=== PATIENT | female | born 1940 | race African-American/Black ===

== ENCOUNTER 2017-02-25 12:33 | Emergency (ER) | payer MEDICARE ==
[~2017-02-25] VITALS: Ht 160 cm; Wt 71.0 kg
[~2017-02-25 12:33] MED LIST: AGGR; AMLO5TAB4 PO; ASPI-1158 PO; BCOMPLEX PO; BENA20TA3 PO; FERR1TAB51 PO; GLIP5TAB12 PO; HYDR25TA PO; ISOS30TA PO; PENT400T2; SIMV40TA2 PO
[2017-02-25] MEDS ORDERED: VISCOUS LIDOCAINE 2% 15 ML UDC MM PRN (17:15)
[2017-02-25] MEDS ORDERED: MAGNESIUM/ALUMINUM HYDROXIDE/SIMETHICONE 30ML UDC PO ONE (17:15)
[2017-02-25 17:45] VITALS: BP 134/75
== END 2017-02-25 18:01 | disposition home or self-care (01) ==
LOC: ER 15:46
DX: R13.10 Dysphagia, unspecified (principal)
CPT/HCPCS: 70490; 71020; 99284

== ENCOUNTER 2018-09-07 20:04 | Inpatient (IN) | payer MEDICARE ==
[~2018-09-07] VITALS: Ht 312.4 cm; Wt 79.4 kg
[~2018-09-07 20:04] MED LIST changes: +BENA20TA10 PO; -BENA20TA3 PO; +PENT400T11 PO; -PENT400T2
[2018-09-07 22:01] LABS: BASOPHILS % 0.6 % (0.0-2.0); EOSINOPHILS % 0.1 % (0.0-5.0); HEMATOCRIT. 35.4 % (36.0-48.0); HEMOGLOBIN. 11.7 g/dL (12.0-16.0); LYMPHOCYTES % 18.9 % (20.0-50.0); MEAN CORPUSCULAR HEMOGLOBIN 29.6 pg (28.0-32.0); MEAN PLATELET VOLUME 8.5 fl (7.4-10.4); MONOCYTES % 3.8 % (2.0-8.0); NEUTROPHILS % 76.6 % (40.0-76.0); PLATELET 264 x1000/uL (130-400); RED BLOOD CELL COUNT 3.93 mill/uL (4.2-5.4); RED CELL DISTRIBUTION WIDTH 14.7 % (11.6-14.6)
[2018-09-07 22:05] LABS: CHLORIDE 104 mEq/L (98-107)
[2018-09-07 22:08] LABS: INR 1.1
[2018-09-08 08:10] VITALS: BP 154/96
[2018-09-08 09:14] VITALS: BP 154/96
[2018-09-08] MEDS: SODIUM CHLORIDE 0.9% 1,000 ML IV SCH (11:24)
[2018-09-08] MEDS ORDERED: IPRATROPIUM/ALBUTEROL 0.5-3(2.5)MG/3ML NEB INH PRN (11:30)
[2018-09-08] MEDS ORDERED: CLONIDINE 0.1MG TABLET PO PRN (11:30)
[2018-09-08] MEDS ORDERED: ONDANSETRON HCL 4MG/2ML INJ IV PRN (11:30)
[2018-09-08] MEDS ORDERED: ACETAMINOPHEN 325MG TABLET PO PRN (11:30)
[2018-09-08] MEDS ORDERED: MAGNESIUM/ALUMINUM HYDROXIDE/SIMETHICONE 30ML UDC PO PRN (11:30)
[2018-09-08] MEDS ORDERED: HYDROCODONE/ACETAMINOPHEN 5/325MG TABLET PO PRN (11:30)
[2018-09-08] MEDS ORDERED: GUAIFENESIN 200MG/10ML SUGAR FREE UDC PO PRN (11:30)
[2018-09-08] MEDS ORDERED: DOCUSATE SODIUM 100MG CAPSULE PO PRN (11:30)
[2018-09-08] MEDS ORDERED: DEXTROSE 50% WATER 50ML SYRINGE IV PRN (11:45)
[2018-09-08 12:04] VITALS: BP 130/70
[2018-09-08] MEDS: BLOOD SUGAR DIAGNOSTIC STRIP TEST SCH ×3 (12:20→20:38)
[2018-09-08] MEDS ORDERED: ATOR10TA69 MT (12:36)
[2018-09-08] MEDS ORDERED: LATA2.5D2 EACHEYE (12:38)
[2018-09-08 12:49] VITALS: BP 154/96
[2018-09-08] MEDS: INSULIN LISPRO 100 UNITS/ML SUBCUT SCH ×3 (12:50→20:38)
[2018-09-08 15:57] VITALS: BP 141/67
[2018-09-08] MEDS: BENAZEPRIL 10MG TABLET PO SCH (15:59)
[2018-09-08] MEDS: ISOSORBIDE MONONITRATE 60MG TABLET SR 24HR PO SCH (15:59)
[2018-09-08] MEDS: AMLODIPINE 10MG TABLET PO SCH (15:59)
[2018-09-08] MEDS: FERROUS SULFATE 325MG TABLET PO SCH (18:37)
[2018-09-08 20:00] VITALS: BP 126/64
[2018-09-08] MEDS: ATORVASTATIN CALCIUM 10MG TABLET PO SCH (21:24)
[2018-09-09] VITALS: BP 106/60
[2018-09-09] MEDS: SODIUM CHLORIDE 0.9% 1,000 ML IV SCH ×2 (02:30→13:11)
[2018-09-09 06:00] VITALS: BP 112/64
[2018-09-09] MEDS: BLOOD SUGAR DIAGNOSTIC STRIP TEST SCH ×4 (06:08→20:52)
[2018-09-09 06:36] LABS: BASOPHILS % 0.4 % (0.0-2.0); EOSINOPHILS % 0.5 % (0.0-5.0); HEMATOCRIT. 34.1 % (36.0-48.0); HEMOGLOBIN. 11.1 g/dL (12.0-16.0); LYMPHOCYTES % 29.9 % (20.0-50.0); MEAN CORPUSCULAR HEMOGLOBIN 29.2 pg (28.0-32.0); MEAN CORPUSCULAR VOLUME 89.6 fL (81.0-99.0); MEAN PLATELET VOLUME 8.9 fl (7.4-10.4); MONOCYTES % 7.3 % (2.0-8.0); NEUTROPHILS % 61.9 % (40.0-76.0); PLATELET 255 x1000/uL (130-400); RED CELL DISTRIBUTION WIDTH 14.9 % (11.6-14.6)
[2018-09-09 06:44] LABS: CHLORIDE 107 mEq/L (98-107)
[2018-09-09 06:50] LABS: LDL CHOLESTEROL 92 mg/dL (5-100)
[2018-09-09 06:52] LABS: HDL CHOLESTEROL 75 mg/dL (40-59)
[2018-09-09 06:53] LABS: T4 FREE 1.07 ng/dL (0.76-1.46)
[2018-09-09] MEDS: INSULIN LISPRO 100 UNITS/ML SUBCUT SCH ×4 (07:25→20:52)
[2018-09-09 08:00] VITALS: BP 109/53
[2018-09-09] MEDS: ISOSORBIDE MONONITRATE 60MG TABLET SR 24HR PO SCH (08:38)
[2018-09-09] MEDS: BENAZEPRIL 10MG TABLET PO SCH (08:38)
[2018-09-09] MEDS: AMLODIPINE 10MG TABLET PO SCH (08:39)
[2018-09-09] MEDS: FERROUS SULFATE 325MG TABLET PO SCH ×3 (09:06→18:05)
[2018-09-09] MEDS: OMEPRAZOLE 20MG CAPSULE EXTENDED RELEASE PO SCH (09:06)
[2018-09-09 12:00] VITALS: BP 108/54
[2018-09-09 15:57] LABS: TOTAL IRON BINDING CAPACITY 325 ug/dL (250-450)
[2018-09-09 16:00] VITALS: BP_SYST 123; BP_SYST 128; BP_SYST 133; BP_DIAS 62; BP_DIAS 69; BP_DIAS 84
[2018-09-09 16:12] LABS: FOLIC ACID (FOLATE) SERUM 15.4 ng/mL (>5.38)
[2018-09-09 20:00] VITALS: BP_SYST 120; BP_SYST 124; BP_SYST 129; BP_DIAS 58; BP_DIAS 62; BP_DIAS 63
[2018-09-09] MEDS: ASPIRIN/DIPYRIDAMOLE 25MG/200MG CAPSULE SA PO SCH (21:09)
[2018-09-09] MEDS: ATORVASTATIN CALCIUM 10MG TABLET PO SCH (21:09)
[2018-09-10 00:03] VITALS: BP 137/68
[2018-09-10] MEDS: SODIUM CHLORIDE 0.9% 1,000 ML IV SCH (03:35)
[2018-09-10 04:21] VITALS: BP 149/69
[2018-09-10] MEDS: BLOOD SUGAR DIAGNOSTIC STRIP TEST SCH ×2 (06:27→12:49)
[2018-09-10] MEDS: OMEPRAZOLE 20MG CAPSULE EXTENDED RELEASE PO SCH (06:27)
[2018-09-10] MEDS: INSULIN LISPRO 100 UNITS/ML SUBCUT SCH ×2 (07:23→12:49)
[2018-09-10 08:00] VITALS: BP_SYST 132; BP_SYST 149; BP_DIAS 63; BP_DIAS 73
[2018-09-10] MEDS: FERROUS SULFATE 325MG TABLET PO SCH ×2 (08:40→13:43)
[2018-09-10] MEDS: ASPIRIN/DIPYRIDAMOLE 25MG/200MG CAPSULE SA PO SCH (08:40)
[2018-09-10] MEDS: ISOSORBIDE MONONITRATE 60MG TABLET SR 24HR PO SCH (08:40)
[2018-09-10] MEDS: AMLODIPINE 10MG TABLET PO SCH (08:41)
[2018-09-10] MEDS: BENAZEPRIL 10MG TABLET PO SCH (08:41)
[2018-09-10 12:08] VITALS: BP 122/68
[2018-09-10 16:00] VITALS: BP 131/50
[2018-09-10 16:12] VITALS: BP 131/50
[2018-09-13 04:15] LABS: BARBITURATE SCREEN Negative ug/mL (Cutoff:0.1); BENZODIAZEPINE SCREEN Negative ng/mL (Cutoff:20); OPIATES SCREEN Negative ng/mL (Cutoff:5); PHENCYCLIDINE SCREEN Negative ng/mL (Cutoff:8)
== END 2018-09-10 16:46 | disposition home or self-care (01) | DRG 74 ==
LOC: ER 20:04 → 6WST 09-08 00:58 → EDBEDREQTM 09-08 01:24 → EDBEDREQ 09-08 01:24 → CANRESERV 09-08 07:36 → ENRESERV 09-08 07:36
PROVIDERS: ADMIT Internal Medicine; ATTEND Internal Medicine
DX: G90.8 Other disorders of autonomic nervous system (principal); I13.0 Hypertensive heart and chronic kidney disease with heart failure and stage 1 through stage 4 chronic kidney disease, or unspecified chronic kidney disease; I69.351 Hemiplegia and hemiparesis following cerebral infarction affecting right dominant side; H40.9 Unspecified glaucoma; R26.9 Unspecified abnormalities of gait and mobility; D64.9 Anemia, unspecified; N18.2 Chronic kidney disease, stage 2 (mild); E11.22 Type 2 diabetes mellitus with diabetic chronic kidney disease; E78.5 Hyperlipidemia, unspecified; I50.9 Heart failure, unspecified; Z88.1 Allergy status to other antibiotic agents; Z79.82 Long term (current) use of aspirin; Z79.84 Long term (current) use of oral hypoglycemic drugs
CPT/HCPCS: 36415; 70544; 70553; 71045; 80061; 80307; 82607; 82746; 82962; 83540; 83550; 83605; 83880; 84439; 84443; 84481; 84484; 93005; 93306; 93880; 93970; 96365; 97162; 97166; 99285; J7030

== ENCOUNTER 2019-08-23 13:01 | Emergency (ER) | payer MEDICARE, OTHER ==
[~2019-08-23] VITALS: Ht 160 cm; Wt 65.0 kg
[~2019-08-23 13:01] MED LIST changes: +ATOR10TA69 MT; -GLIP5TAB12 PO; -HYDR25TA PO; +LATA2.5D2 EACHEYE; -PENT400T11 PO; +PENT400T16 PO; -SIMV40TA2 PO
[2019-08-23] MEDS ORDERED: ACETAMINOPHEN 325MG TABLET PO ONE (21:00)
[2019-08-23 21:26] LABS: EOSINOPHILS % 0.6 % (0.0-5.0); HEMATOCRIT. 32.5 % (36.0-48.0); LYMPHOCYTES % 25.5 % (20.0-50.0); MEAN CORPUSCULAR VOLUME 88.4 fL (81.0-99.0); MEAN PLATELET VOLUME 8.6 fl (7.4-10.4); MONOCYTES % 7.8 % (2.0-8.0); NEUTROPHILS % 65.1 % (40.0-76.0); PLATELET 261 x1000/uL (130-400); RED BLOOD CELL COUNT 3.67 mill/uL (4.2-5.4); RED CELL DISTRIBUTION WIDTH 15.7 % (11.6-14.6)
[2019-08-23 21:28] LABS: CHLORIDE 109 mEq/L (98-107)
[2019-08-24 01:44] VITALS: BP 133/48
[2019-08-24 03:17] LABS: CLARITY URINE CLOUDY (CLEAR); COLOR URINE YELLOW (YELLOW); KETONES URINE NEGATIVE (NEGATIVE); LEUKOCYTE ESTERASE URINE 3+ (NEGATIVE); NITRITE URINE NEGATIVE (NEGATIVE); OCCULT BLOOD URINE NEGATIVE (NEGATIVE); PROTEIN URINE 2+ (NEGATIVE); SPECIFIC GRAVITY URINE 1.014 (1.005-1.030); UROBILINOGEN URINE 0.2 E.U./dL (0.2-1.0)
[2019-08-24 03:24] LABS: *AMPHETAMINES SCREEN URINE NEGATIVE (NEGATIVE); *BARBITURATES SCREEN URINE NEGATIVE (NEGATIVE)
[2019-08-24 03:25] LABS: *BENZODIAZEPINES SCREEN URINE NEGATIVE (NEGATIVE); *COCAINE SCREEN URINE NEGATIVE (NEGATIVE); CANNABINOID URINE SCREEN NEGATIVE (NEGATIVE); METHADONE URINE SCREEN NEGATIVE (NEGATIVE); OPIATES URINE SCREEN NEGATIVE (NEGATIVE); PHENCYCLIDINE URINE SCREEN NEGATIVE (NEGATIVE)
== END 2019-08-24 04:12 | disposition home or self-care (01) ==
LOC: ER 13:01
DX: S60.222A Contusion of left hand, initial encounter (principal); S60.212A Contusion of left wrist, initial encounter; E11.9 Type 2 diabetes mellitus without complications; I10 Essential (primary) hypertension; I69.354 Hemiplegia and hemiparesis following cerebral infarction affecting left non-dominant side; Z98.890 Other specified postprocedural states; Z79.82 Long term (current) use of aspirin; Z79.01 Long term (current) use of anticoagulants; Z88.0 Allergy status to penicillin; W01.0XXA Fall on same level from slipping, tripping and stumbling without subsequent striking against object, initial encounter; Y93.89 Activity, other specified; Y92.018 Other place in single-family (private) house as the place of occurrence of the external cause
CPT/HCPCS: 29125; 36415; 71045; 73110; 73130; 80053; 80305; 81003; 83880; 84484; 85025; 93005; 99285

== ENCOUNTER 2021-02-23 16:08 | Inpatient (IN) | payer OTHER ==
[~2021-02-23] VITALS: Ht 160 cm; Wt 64.5 kg
[~2021-02-23 16:08] MED LIST changes: -ASPI-1158 PO; +ASPI-1406 PO; +LATA2.5D14 EACHEYE; -LATA2.5D2 EACHEYE
[2021-02-23] MEDS ORDERED: SODIUM CHLORIDE 0.9% 1,000 ML IV ONE (17:45)
[2021-02-23 20:48] LABS: BASOPHILS % 0.2 % (0.0-2.0); HEMATOCRIT. 38.1 % (36.0-48.0); HEMOGLOBIN. 12.1 g/dL (12.0-16.0); LYMPHOCYTES % 9.3 % (20.0-50.0); MEAN CORPUSCULAR HEMOGLOBIN 27.9 pg (28.0-32.0); MEAN CORPUSCULAR VOLUME 87.8 fL (81.0-99.0); MONOCYTES % 2.8 % (2.0-8.0); NEUTROPHILS % 87.7 % (40.0-76.0); PLATELET 242 x1000/uL (130-400); RED BLOOD CELL COUNT 4.34 mill/uL (4.2-5.4); RED CELL DISTRIBUTION WIDTH 16.2 % (11.6-14.6)
[2021-02-23 20:51] LABS: CHLORIDE 113 mEq/L (98-107)
[2021-02-23] MEDS ORDERED: LORAZEPAM 1MG TABLET PO ONE (21:00)
[2021-02-23 21:42] LABS: CLARITY URINE CLEAR (CLEAR); COLOR URINE YELLOW (YELLOW); KETONES URINE NEGATIVE (NEGATIVE); LEUKOCYTE ESTERASE URINE NEGATIVE (NEGATIVE); NITRITE URINE NEGATIVE (NEGATIVE); OCCULT BLOOD URINE NEGATIVE (NEGATIVE); PROTEIN URINE 1+ (NEGATIVE); SPECIFIC GRAVITY URINE 1.023 (1.005-1.030); UROBILINOGEN URINE 0.2 E.U./dL (0.2-1.0)
[2021-02-23 23:48] VITALS: BP 128/70
[2021-02-24] VITALS (12 sets, daily range): BP systolic 118–149; BP diastolic 57–71
[2021-02-24] MEDS ORDERED: DEXTROSE 50% WATER 50ML SYRINGE IV PRN (05:30)
[2021-02-24] MEDS: HYDRALAZINE HCL 50MG TABLET PO SCH ×3 (05:57→21:58)
[2021-02-24] MEDS: BLOOD SUGAR DIAGNOSTIC STRIP TEST SCH ×4 (06:18→20:14)
[2021-02-24] MEDS: INSULIN LISPRO 100 UNITS/ML SUBCUT SCH ×4 (06:19→21:00)
[2021-02-24 06:55] LABS: BASOPHILS % 0.2 % (0.0-2.0); EOSINOPHILS % 0.4 % (0.0-5.0); HEMATOCRIT. 29.3 % (36.0-48.0); HEMOGLOBIN. 9.6 g/dL (12.0-16.0); LYMPHOCYTES % 18.1 % (20.0-50.0); MEAN CORPUSCULAR HEMOGLOBIN 28.2 pg (28.0-32.0); MEAN CORPUSCULAR VOLUME 86.2 fL (81.0-99.0); MEAN PLATELET VOLUME 9.5 fl (7.4-10.4); MONOCYTES % 6.9 % (2.0-8.0); NEUTROPHILS % 74.4 % (40.0-76.0); PLATELET 230 x1000/uL (130-400); RED BLOOD CELL COUNT 3.39 mill/uL (4.2-5.4); RED CELL DISTRIBUTION WIDTH 16.1 % (11.6-14.6)
[2021-02-24] MEDS: ENOXAPARIN 30MG/0.3ML SYR SUBCUT SCH (08:25)
[2021-02-24] MEDS: FERROUS SULFATE 325MG TABLET PO SCH (08:25)
[2021-02-24] MEDS: AMLODIPINE 10MG TABLET PO SCH (08:26)
[2021-02-24] MEDS: ASPIRIN 81MG EC TABLET PO SCH ×2 (08:26→17:56)
[2021-02-24] MEDS: FOLIC ACID/VITAMIN B COMP W-C TABLET PO SCH (08:26)
[2021-02-24] MEDS: ASPIRIN/DIPYRIDAMOLE 25MG/200MG CAPSULE SA PO SCH ×2 (08:26→20:14)
[2021-02-24] MEDS: BENAZEPRIL 10MG TABLET PO SCH (08:26)
[2021-02-24] MEDS: PENTOXIFYLLINE 400MG TABLET PO SCH ×3 (08:26→17:56)
[2021-02-24] MEDS ORDERED: POTASSIUM CHLORIDE 20MEQ/PACKET PO NR (09:00)
[2021-02-24] MEDS: ISOSORBIDE MONONITRATE 60MG TABLET SR 24HR PO SCH (09:17)
[2021-02-24] MEDS: ATORVASTATIN CALCIUM 40MG TABLET PO SCH (20:14)
[2021-02-25] VITALS (12 sets, daily range): BP systolic 104–142; BP diastolic 52–94
[2021-02-25] MEDS: BLOOD SUGAR DIAGNOSTIC STRIP TEST SCH ×4 (06:09→20:52)
[2021-02-25] MEDS: HYDRALAZINE HCL 50MG TABLET PO SCH ×3 (06:09→21:04)
[2021-02-25] MEDS: INSULIN LISPRO 100 UNITS/ML SUBCUT SCH ×4 (06:34→21:00)
[2021-02-25] MEDS: ASPIRIN 81MG EC TABLET PO SCH ×2 (08:34→17:22)
[2021-02-25] MEDS: ISOSORBIDE MONONITRATE 60MG TABLET SR 24HR PO SCH (08:34)
[2021-02-25] MEDS: FERROUS SULFATE 325MG TABLET PO SCH (08:34)
[2021-02-25] MEDS: PENTOXIFYLLINE 400MG TABLET PO SCH ×3 (08:35→17:22)
[2021-02-25] MEDS: AMLODIPINE 10MG TABLET PO SCH (08:35)
[2021-02-25] MEDS: ASPIRIN/DIPYRIDAMOLE 25MG/200MG CAPSULE SA PO SCH ×2 (08:35→20:52)
[2021-02-25] MEDS: FOLIC ACID/VITAMIN B COMP W-C TABLET PO SCH (08:35)
[2021-02-25] MEDS: BENAZEPRIL 10MG TABLET PO SCH (08:35)
[2021-02-25] MEDS: ENOXAPARIN 30MG/0.3ML SYR SUBCUT SCH (08:36)
[2021-02-25] MEDS: ATORVASTATIN CALCIUM 40MG TABLET PO SCH (20:52)
[2021-02-26] VITALS (11 sets, daily range): BP systolic 92–122; BP diastolic 52–70
[2021-02-26] MEDS: HYDRALAZINE HCL 50MG TABLET PO SCH ×2 (06:02→14:00)
[2021-02-26] MEDS: BLOOD SUGAR DIAGNOSTIC STRIP TEST SCH ×3 (06:17→17:20)
[2021-02-26] MEDS: INSULIN LISPRO 100 UNITS/ML SUBCUT SCH ×3 (07:20→17:20)
[2021-02-26] MEDS: FERROUS SULFATE 325MG TABLET PO SCH (08:08)
[2021-02-26] MEDS: FOLIC ACID/VITAMIN B COMP W-C TABLET PO SCH (08:08)
[2021-02-26] MEDS: ASPIRIN 81MG EC TABLET PO SCH ×2 (08:08→18:06)
[2021-02-26] MEDS: AMLODIPINE 10MG TABLET PO SCH (08:08)
[2021-02-26] MEDS: ENOXAPARIN 30MG/0.3ML SYR SUBCUT SCH (08:09)
[2021-02-26] MEDS: ASPIRIN/DIPYRIDAMOLE 25MG/200MG CAPSULE SA PO SCH (08:09)
[2021-02-26] MEDS: BENAZEPRIL 10MG TABLET PO SCH (08:09)
[2021-02-26] MEDS: ISOSORBIDE MONONITRATE 60MG TABLET SR 24HR PO SCH (08:09)
[2021-02-26] MEDS: PENTOXIFYLLINE 400MG TABLET PO SCH ×3 (08:09→18:06)
[2021-02-26] MEDS ORDERED: ONDANSETRON HCL 4MG/2ML INJ IV PRN (08:45)
[2021-02-26] MEDS ORDERED: BARIUM SULFATE 176 GM SUSP.RECON ONE (11:01)
== END 2021-02-26 18:28 | disposition home health service (06) | DRG 73 ==
LOC: ER 16:08 → 3WST 21:37 → EDBEDREQTM 21:38 → EDBEDREQ 21:38 → ENRESERV 22:40 → 3WST 02-26 08:58
PROVIDERS: ADMIT Internal Medicine; ATTEND Internal Medicine
DX: G90.8 Other disorders of autonomic nervous system (principal); G93.41 Metabolic encephalopathy; G82.50 Quadriplegia, unspecified; N17.0 Acute kidney failure with tubular necrosis; R47.01 Aphasia; E87.0 Hyperosmolality and hypernatremia; G45.9 Transient cerebral ischemic attack, unspecified; R55 Syncope and collapse; R42 Dizziness and giddiness; E78.5 Hyperlipidemia, unspecified; R47.1 Dysarthria and anarthria; R13.10 Dysphagia, unspecified; R53.81 Other malaise; S09.90XA Unspecified injury of head, initial encounter; E11.9 Type 2 diabetes mellitus without complications; D64.9 Anemia, unspecified; E87.5 Hyperkalemia; F03.90 Unspecified dementia, unspecified severity, without behavioral disturbance, psychotic disturbance, mood disturbance, and anxiety; E87.8 Other disorders of electrolyte and fluid balance, not elsewhere classified; I10 Essential (primary) hypertension; W19.XXXA Unspecified fall, initial encounter; Y93.89 Activity, other specified; Y92.89 Other specified places as the place of occurrence of the external cause; Y99.8 Other external cause status; Z86.73 Personal history of transient ischemic attack (TIA), and cerebral infarction without residual deficits; Z88.0 Allergy status to penicillin
CPT/HCPCS: 36415; 70551; 71045; 74230; 80048; 80053; 81003; 82140; 82962; 83036; 84484; 85025; 92523; 92610; 92611; 93005; 93306; 93880; 97162; 99285; J1650; J2405; J7030

== ENCOUNTER 2021-09-17 12:49 | Emergency (ER) | payer OTHER ==
[~2021-09-17] VITALS: Ht 162.6 cm; Wt 51.0 kg
[2021-09-17 16:09] LABS: CHLORIDE 101 mEq/L (98-107)
[2021-09-17 16:13] LABS: BASOPHILS % 0.2 % (0.0-2.0); HEMOGLOBIN. 11.5 g/dL (12.0-16.0); MEAN CORPUSCULAR HEMOGLOBIN 27.3 pg (28.0-32.0); MEAN PLATELET VOLUME 9.3 fl (7.4-10.4); MONOCYTES % 3.2 % (2.0-8.0); NEUTROPHILS % 88.6 % (40.0-76.0); PLATELET 252 x1000/uL (130-400); RED BLOOD CELL COUNT 4.21 mill/uL (4.2-5.4); RED CELL DISTRIBUTION WIDTH 15.4 % (11.6-14.6)
[2021-09-17 18:55] LABS: CLARITY URINE CLEAR (CLEAR); COLOR URINE YELLOW (YELLOW); KETONES URINE 1+ (NEGATIVE); LEUKOCYTE ESTERASE URINE NEGATIVE (NEGATIVE); NITRITE URINE NEGATIVE (NEGATIVE); OCCULT BLOOD URINE NEGATIVE (NEGATIVE); PROTEIN URINE 1+ (NEGATIVE); SPECIFIC GRAVITY URINE 1.016 (1.005-1.030); UROBILINOGEN URINE 0.2 E.U./dL (0.2-1.0)
[2021-09-17 20:30] VITALS: BP 115/60
== END 2021-09-17 21:36 | disposition home or self-care (01) ==
LOC: ER 12:49 → CANBEDREQ 23:01
DX: R53.1 Weakness (principal); I50.9 Heart failure, unspecified; E11.9 Type 2 diabetes mellitus without complications; I10 Essential (primary) hypertension; R51.9 Headache, unspecified; Z20.822 Contact with and (suspected) exposure to COVID-19; Z79.82 Long term (current) use of aspirin
CPT/HCPCS: 36415; 71045; 80053; 81003; 83605; 83880; 84443; 84484; 85025; 87426; 93005; 99285

== ENCOUNTER 2021-12-27 14:48 | Inpatient (IN) | payer OTHER ==
[~2021-12-27] VITALS: Ht 162.6 cm; Wt 62.6 kg
[~2021-12-27 14:48] MED LIST changes: +BENA-8 PO; -BENA20TA10 PO
[2021-12-27 16:49] LABS: BASOPHILS % 0.5 % (0.0-2.0); EOSINOPHILS % 1.1 % (0.0-5.0); HEMATOCRIT. 30.1 % (36.0-48.0); HEMOGLOBIN. 9.9 g/dL (12.0-16.0); LYMPHOCYTES % 17.5 % (20.0-50.0); MEAN CORPUSCULAR VOLUME 85.2 fL (81.0-99.0); MEAN PLATELET VOLUME 8.9 fl (7.4-10.4); MONOCYTES % 5.1 % (2.0-8.0); NEUTROPHILS % 75.8 % (40.0-76.0); PLATELET 247 x1000/uL (130-400); RED BLOOD CELL COUNT 3.54 mill/uL (4.2-5.4); RED CELL DISTRIBUTION WIDTH 15.6 % (11.6-14.6)
[2021-12-27 16:53] LABS: CHLORIDE 106 mEq/L (98-107)
[2021-12-28 00:20] VITALS: BP 145/67
[2021-12-28] MEDS ORDERED: ASPI-1497 PO (02:08)
[2021-12-28] MEDS ORDERED: MIRT7.5T11 PO (02:08)
[2021-12-28] MEDS ORDERED: REPA0.5T5 PO (02:08)
[2021-12-28] MEDS ORDERED: PENT400T16 PO (02:08)
[2021-12-28] MEDS ORDERED: FERR325T6 PO (02:08)
[2021-12-28] MEDS ORDERED: ATOR40TA70 PO (02:08)
[2021-12-28] MEDS ORDERED: ISOS60TA76 PO (02:08)
[2021-12-28] MEDS ORDERED: HYDR-4134 PO (02:08)
[2021-12-28] MEDS ORDERED: DEXTROSE 50% WATER 50ML SYRINGE IV PRN (02:30)
[2021-12-28 04:00] VITALS: BP 112/57
[2021-12-28] MEDS: BLOOD SUGAR DIAGNOSTIC STRIP TEST SCH ×4 (06:31→21:53)
[2021-12-28] MEDS: INSULIN LISPRO 100 UNITS/ML SUBCUT SCH ×4 (07:50→21:00)
[2021-12-28 08:00] VITALS: BP 134/74
[2021-12-28 08:50] LABS: BASOPHILS % 0.4 % (0.0-2.0); EOSINOPHILS % 2.1 % (0.0-5.0); HEMATOCRIT. 34.5 % (36.0-48.0); LYMPHOCYTES % 23.3 % (20.0-50.0); MEAN CORPUSCULAR HEMOGLOBIN 27.9 pg (28.0-32.0); MEAN CORPUSCULAR VOLUME 87.4 fL (81.0-99.0); MEAN PLATELET VOLUME 10.1 fl (7.4-10.4); MONOCYTES % 8.2 % (2.0-8.0); PLATELET 222 x1000/uL (130-400); RED BLOOD CELL COUNT 3.94 mill/uL (4.2-5.4); RED CELL DISTRIBUTION WIDTH 16.3 % (11.6-14.6)
[2021-12-28] MEDS ORDERED: HYDRALAZINE HCL 25MG TABLET PO SCH (09:00)
[2021-12-28] MEDS ORDERED: AMLODIPINE 10MG TABLET PO SCH (09:00)
[2021-12-28] MEDS ORDERED: ISOSORBIDE MONONITRATE 60MG TABLET SR 24HR PO SCH (09:00)
[2021-12-28 09:05] LABS: CHLORIDE 106 mEq/L (98-107)
[2021-12-28] MEDS: REPAGLINIDE 0.5MG TABLET PO SCH ×2 (09:30→17:50)
[2021-12-28] MEDS: PENTOXIFYLLINE 400MG TABLET PO SCH ×3 (09:30→18:11)
[2021-12-28] MEDS: ASPIRIN 81MG EC TABLET PO SCH (09:31)
[2021-12-28] MEDS: BENAZEPRIL 10MG TABLET PO SCH (09:31)
[2021-12-28] MEDS: FERROUS SULFATE 325MG TABLET PO SCH (09:32)
[2021-12-28 12:00] VITALS: BP_SYST 105; BP_SYST 94; BP_SYST 96; BP_DIAS 39; BP_DIAS 45; BP_DIAS 47
[2021-12-28 16:00] VITALS: BP 99/48
[2021-12-28 18:42] LABS: CLARITY URINE CLEAR (CLEAR); COLOR URINE YELLOW (YELLOW); KETONES URINE TRACE (NEGATIVE); LEUKOCYTE ESTERASE URINE 3+ (NEGATIVE); NITRITE URINE NEGATIVE (NEGATIVE); OCCULT BLOOD URINE NEGATIVE (NEGATIVE); PH URINE 5.5 (4.5-8.0); PROTEIN URINE 2+ (NEGATIVE); SPECIFIC GRAVITY URINE 1.025 (1.005-1.030)
[2021-12-28 20:00] VITALS: BP_SYST 111; BP_SYST 115; BP_SYST 121; BP_DIAS 48; BP_DIAS 58
[2021-12-28] MEDS ORDERED: LORAZEPAM 2MG/ML CPJ IV PRN (21:00)
[2021-12-28] MEDS: ATORVASTATIN CALCIUM 40MG TABLET PO SCH (21:53)
[2021-12-28] MEDS: AMLODIPINE 5MG TABLET PO SCH (21:53)
[2021-12-28] MEDS: MIRTAZAPINE 15MG TABLET PO SCH (21:54)
[2021-12-29] VITALS (7 sets, daily range): BP systolic 113–148; BP diastolic 57–75
[2021-12-29] MEDS: BLOOD SUGAR DIAGNOSTIC STRIP TEST SCH ×4 (06:56→21:49)
[2021-12-29] MEDS: INSULIN LISPRO 100 UNITS/ML SUBCUT SCH ×4 (07:50→21:00)
[2021-12-29] MEDS: REPAGLINIDE 0.5MG TABLET PO SCH ×2 (07:50→17:50)
[2021-12-29] MEDS: FERROUS SULFATE 325MG TABLET PO SCH (09:26)
[2021-12-29] MEDS: ASPIRIN 81MG EC TABLET PO SCH (09:26)
[2021-12-29] MEDS: BENAZEPRIL 10MG TABLET PO SCH (09:26)
[2021-12-29] MEDS: AMLODIPINE 5MG TABLET PO SCH (09:26)
[2021-12-29] MEDS: PENTOXIFYLLINE 400MG TABLET PO SCH ×3 (09:27→17:54)
[2021-12-29 09:29] LABS: CHLORIDE 107 mEq/L (98-107)
[2021-12-29] MEDS ORDERED: CEFTRIAXONE 1 G PREMIX 50 ML IV SCH (09:45)
[2021-12-29] MEDS ORDERED: CEFTRIAXONE 1,000 MG in DEXTROSE 5% WATER 50 ML IV SCH (12:00)
[2021-12-29] MEDS ORDERED: MAGNESIUM 2 G PREMIX 50 ML IV NR (14:00)
[2021-12-29] MEDS: METOPROLOL TARTRATE 25MG TABLET PO SCH ×2 (14:00→21:48)
[2021-12-29] MEDS: AMLODIPINE 2.5MG TABLET PO SCH (21:48)
[2021-12-29] MEDS: MIRTAZAPINE 15MG TABLET PO SCH (21:48)
[2021-12-29] MEDS: ATORVASTATIN CALCIUM 40MG TABLET PO SCH (21:49)
[2021-12-30 03:49] VITALS: BP_SYST 120; BP_SYST 123; BP_DIAS 59; BP_DIAS 61
[2021-12-30] MEDS: BLOOD SUGAR DIAGNOSTIC STRIP TEST SCH (05:52)
[2021-12-30] MEDS: INSULIN LISPRO 100 UNITS/ML SUBCUT SCH (07:50)
[2021-12-30 08:00] VITALS: BP 123/62
[2021-12-30] MEDS: AMLODIPINE 2.5MG TABLET PO SCH (08:40)
[2021-12-30] MEDS: PENTOXIFYLLINE 400MG TABLET PO SCH (08:40)
[2021-12-30] MEDS: BENAZEPRIL 10MG TABLET PO SCH (08:40)
[2021-12-30] MEDS: FERROUS SULFATE 325MG TABLET PO SCH (08:41)
[2021-12-30] MEDS: ASPIRIN 81MG EC TABLET PO SCH (08:41)
[2021-12-30] MEDS: REPAGLINIDE 0.5MG TABLET PO SCH (08:41)
[2021-12-30] MEDS: METOPROLOL TARTRATE 25MG TABLET PO SCH (08:41)
[2021-12-30] MEDS ORDERED: METO25TA6 PO (10:32)
[2021-12-30] MEDS ORDERED: LEVO500T90 MT (10:32)
[2021-12-30 11:00] VITALS: BP 123/62
[2021-12-30] MEDS ORDERED: METOPROLOL TARTRATE 25MG TABLET PO SCH (21:00)
[2021-12-31] MEDS ORDERED: AMLODIPINE 2.5MG TABLET PO SCH (08:00)
== END 2021-12-30 11:50 | disposition home or self-care (01) | DRG 73 ==
LOC: ER 14:48 → EDBEDREQTM 21:02 → EDBEDREQ 21:02 → MICUSO 23:22 → 6WST 12-28 01:51
PROVIDERS: ADMIT Internal Medicine; ATTEND Internal Medicine
DX: G90.8 Other disorders of autonomic nervous system (principal); N17.0 Acute kidney failure with tubular necrosis; E44.0 Moderate protein-calorie malnutrition; N39.0 Urinary tract infection, site not specified; I47.2 Ventricular tachycardia; D64.9 Anemia, unspecified; I10 Essential (primary) hypertension; F03.90 Unspecified dementia, unspecified severity, without behavioral disturbance, psychotic disturbance, mood disturbance, and anxiety; R00.1 Bradycardia, unspecified; F17.200 Nicotine dependence, unspecified, uncomplicated; E11.9 Type 2 diabetes mellitus without complications; Z83.3 Family history of diabetes mellitus; Z68.23 Body mass index [BMI] 23.0-23.9, adult; Z88.1 Allergy status to other antibiotic agents; Z79.82 Long term (current) use of aspirin; Z79.899 Other long term (current) drug therapy
CPT/HCPCS: 36415; 71045; 80053; 81003; 82962; 83036; 83735; 83880; 84484; 85025; 93005; 93306; 99285; J0696; J1815; J2060; J3475; J7060

== ENCOUNTER 2023-03-26 02:27 | Emergency (ER) | payer OTHER ==
[~2023-03-26] VITALS: Ht 157.5 cm; Wt 75.0 kg
[~2023-03-26 02:27] MED LIST changes: -AGGR; -AMLO5TAB4 PO; -ASPI-1406 PO; +ASPI-1497 PO; -ATOR10TA69 MT; +ATOR40TA70 PO; -FERR1TAB51 PO; +FERR325T6 PO; -ISOS30TA PO; +ISOS60TA76 PO; -LATA2.5D14 EACHEYE; +LEVO-65 MT; +METO25TA6 PO; +MIRT7.5T11 PO; +REPA0.5T5 PO
[2023-03-26 02:31] VITALS: O2SAT 100
[2023-03-26] MEDS ORDERED: TRANEXAMIC ACID 1,000 MG/10 ML TP ONE (03:15)
[2023-03-26 05:40] VITALS: BP 132/64; PULSE 67; RESP 18; TEMP 98.4
== END 2023-03-26 05:57 | disposition home or self-care (01) ==
LOC: ER 02:27
DX: R04.1 Hemorrhage from throat (principal); E11.9 Type 2 diabetes mellitus without complications; I10 Essential (primary) hypertension; Z79.899 Other long term (current) drug therapy
CPT/HCPCS: 12011; 99291